=== PATIENT | female | born 1985 | race Caucasian/White ===

== ENCOUNTER 2016-11-23 14:21 | Emergency (ER) | payer SELFPAY ==
[2016-11-23 14:22] VITALS: BMI 24.7
--- NOTE | 2016-11-23 14:57 | C.PDOC ---
History Of Present Illness 31 yr old female s/p bilateral tubal ligation, presents to the ER stating for the past 2 weeks she has been experiencing dysfunctional uterine bleeding. [place] [facility] [place]. Denies fever, nausea, vomiting, abdominal pain, diarrhea, dysuria, incontinence, weakness or numbness , Time Seen by Provider: 11/23/16 14:40 Chief Complaint (Nursing): Abdominal Pain History Per: Patient History/Exam Limitations: no limitations Onset/Duration Of Symptoms: Days (2 weeks) Past Medical History Reviewed: Historical Data, Nursing Documentation, Vital Signs Vital Signs: Last Vital Signs Temp 98.6 F 11/23/16 14:32 Pulse 69 11/23/16 14:32 Resp 20 11/23/16 14:32 BP 116/76 11/23/16 14:32 Pulse Ox 98 11/23/16 16:17 - Medical History PMH: Back Problems Family History: States: No Known Family Hx - Social History Hx Tobacco Use: No Hx Alcohol Use: No Hx Substance Use: No - Immunization History Hx Tetanus Toxoid Vaccination: No Hx Influenza Vaccination: No Hx Pneumococcal Vaccination: No Review Of Systems Except As Marked, All Systems Reviewed And Found Negative. Constitutional: Negative for: Fever Gastrointestinal: Negative for: Nausea, Vomiting, Abdominal Pain, Diarrhea Genitourinary: Positive for: Other ((+) Uterine bleeding). Negative for: Dysuria, Incontinence Neurological: Negative for: Weakness, Numbness Physical Exam - Physical Exam Appears: Well, Non-toxic, No Acute Distress Skin: Warm, Dry, No Rash Head: Atraumatic, Normacephalic Chest: Symmetrical, No Tenderness Cardiovascular: Rhythm Regular, No Murmur Respiratory: Normal Breath Sounds, No Rales, No Rhonchi, No Wheezing Gastrointestinal/Abdominal: Normal Exam, Soft, No Tenderness, No Guarding, No Rebound Extremity: Normal ROM, No Swelling Neurological/Psych: Oriented x3, Normal Speech, Normal Motor ED Course And Treatment - Laboratory Results Result Diagrams: 11/23/16 15:06 11/23/16 15:06 Lab Interpretation: Normal (UA neg.) Urine POC: Negative O2 Sat by Pulse Oximetry: 98 - CT Scan/US US - Transvaginal Other Rad Studies (CT/US): Read By Radiologist, Radiology Report Reviewed CT/US Interpretation: IMPRESSION: Mildly heterogeneous endometrium, questionable significance. No endometrial blood clot identified. 12 mm exophytic right ovarian cyst of uncertain significance. Otherwise unremarkable. Reevaluation Time: 16:15 Reassessment Condition: Improved - Physician Consult Information Outcome Of Conversation: 1615: d/w Dr. Connelly- OB On [place]- ok to start Provera 10 mg QD x 7 days and opt f/[place] w [place]. [place]annery [place] [facility] [place] [facility] [facility]. Medical Decision Making Medical Decision Making: PLAN: * US - Transvaginal * CBC * CMP * HCG * Urinalysis mild vag spotting after tubal ligation 2-3 weeks ago no leukocytosis no anemia Provera x 7 days and [place] f[place] [facility] Doctor Will See Patient In The: Office Counseled Patient/Family Regarding: Studies Performed, Diagnosis - Disposition Referrals: Uzair Connelly [Staff Provider] - Disposition: HOME/ ROUTINE Disposition Time: 16:17 Condition: GOOD Additional Instructions: continue Provera 10 mg for 6 more days- this will help stop the uterine bleeding Follow-up with Dr. Flannery (sp?) [place] [facility] [place] 1 [place] for re-eval. Prescriptions: MedroxyPROGESTERone [Provera] 1 tab PO DAILY #6 tab Instructions: Dysfunctional Uterine Bleeding (ED) - Clinical Impression Clinical Impression: DUB (dysfunctional uterine bleeding) - Scribe Statement The provider has reviewed the documentation as recorded by the Mauricioibe Jayashree Shearer Provider Attestation: All medical record entries made by the Scribe were at my direction and personally dictated by me. I have reviewed the chart and agree that the record accurately reflects my personal performance of the history, physical exam, medical decision making, and the department course for this patient. I have also personally directed, reviewed, and agree with the discharge instructions and disposition.
[2016-11-23 15:09] LABS: BASO # 0.1 K/uL (0.0-0.2); BASO % 0.7 % (0.0-2.0); EOS # 0.1 K/uL (0.0-0.7); HEMATOCRIT 40.4 % (34.0-47.0); LYMPH # 2.7 K/uL (1.0-4.3); LYMPH % 27.5 % (20.0-40.0); MEAN CORPUSCULAR HEMOGLOBIN 22.3 pg (27.0-31.0); MEAN CORPUSCULAR HGB CONC 31.5 g/dL (33.0-37.0); MONO # 0.5 K/uL (0.0-0.8); MONO % 5.2 % (0.0-10.0); NRBC % 0.1 % (0.0-2.0); RED CELL DISTRIBUTION WIDTH 15.2 % (11.5-14.5); WHITE BLOOD COUNT 9.7 K/uL (4.8-10.8)
[2016-11-23 15:23] LABS: CHLORIDE 104 mmol/L (98-107)
[2016-11-23 15:24] LABS: POTASSIUM 4.2 mmol/L (3.6-5.2); SODIUM 140 mmol/L (132-148)
[2016-11-23 15:26] LABS: BILIRUBIN,TOTAL 0.7 mg/dL (0.2-1.3); GFR AFRICAN-AMERICAN > 60
[2016-11-23 15:27] LABS: ALB/GLOB RATIO 1.1 (1.0-2.1); ALKALINE PHOSPHATASE 63 U/L (38-126); ALT/SGPT 14 U/L (9-52); AST/SGOT 20 U/L (14-36); BLOOD UREA NITROGEN 19 mg/dL (7-17); CALCIUM 9.5 mg/dl (8.6-10.4); CARBON DIOXIDE 24 mmol/L (22-30); GLUCOSE,RANDOM 89 mg/dL (65-105); TOTAL PROTEIN 8.6 g/dL (6.3-8.3)
[2016-11-23 15:30] LABS: RBC URINE 3 /hpf (0-3); URINE BILIRUBIN NEGATIVE (NEGATIVE); URINE BLOOD 1+ (NEGATIVE); URINE COLOR Straw (YELLOW); URINE GLUCOSE (UA) NORMAL (Normal); URINE KETONE NEGATIVE (NEGATIVE); URINE LEUKOCYTE ESTERASE NEG Leu/uL (Negative); URINE PROTEIN NEGATIVE (NEGATIVE); URINE UROBILINOGEN NORMAL mg/dL (0.2-1.0); WBC URINE < 1 /hpf (0-5)
--- NOTE | 2016-11-23 16:17 | US ---
HISTORY: DUB, b/l ligation < 1 mo ago COMPARISON: None available. TECHNIQUE: Transabdominal and transvaginal FINDINGS: UTERUS: Measures 8.1 x 3.8 x 4.3 cm. Normal in size and appearance. No fibroid or other mass lesion seen. ENDOMETRIUM: Measures 7 mm in diameter. Heterogeneous. No endometrial fluid or blood clot identified. CERVIX: No cervical abnormality identified. RIGHT OVARY: Measures 2.3 x 1.8 x 2.9 cm. No solid mass. Normal flow. 12 mm cyst slightly exophytic from right ovary. Uncertain significance. Possibly para ovarian. Ovary only visualized transabdominally. LEFT OVARY: Measures 3.0 x 1.7 x 2.5 cm. No solid mass. Normal flow. FREE FLUID: Trace OTHER FINDINGS: None. IMPRESSION: Mildly heterogeneous endometrium, questionable significance. No endometrial blood clot identified. 12 mm exophytic right ovarian cyst of uncertain significance. Otherwise unremarkable.
[2016-11-23 16:35] VITALS: BP 113/75; PULSE 76; RESP 18; TEMP 98.1; O2SAT 100
== END 2016-11-23 16:38 | disposition home or self-care (01) ==
LOC: C.ER 14:21
DX: N93.8 Other specified abnormal uterine and vaginal bleeding (principal)